=== PATIENT | female | born 1990 | race African-American/Black ===

== ENCOUNTER 2021-01-23 15:20 | Emergency (ER) | payer SELFPAY ==
[~2021-01-23] VITALS: Ht 172.7 cm; Wt 117.0 kg
[2021-01-23 16:22] VITALS: BP 138/82
== END 2021-01-23 20:02 | disposition left against medical advice (07) ==
LOC: ER 15:20
DX: Z53.21 Procedure and treatment not carried out due to patient leaving prior to being seen by health care provider (principal)

== ENCOUNTER 2022-01-13 18:22 | Emergency (ER) | payer OTHER ==
[~2022-01-13] VITALS: Ht 175.3 cm; Wt 100.0 kg
[2022-01-13 18:23] VITALS: BP 140/82
== END 2022-01-13 19:36 ==
LOC: ER 18:22
DX: G50.1 Atypical facial pain (principal); V49.59XA Passenger injured in collision with other motor vehicles in traffic accident, initial encounter; Y93.89 Activity, other specified; Y92.488 Other paved roadways as the place of occurrence of the external cause
CPT/HCPCS: 99283